=== PATIENT | female | born 2000 | race Caucasian/White ===

== ENCOUNTER 2022-03-19 14:02 | Observation (INO) ==
[2022-03-19 15:10] LABS: BUN Creatinine Ratio 15.7 (10-20); Bilirubin,Total 0.3 mg/dl (0.2-1.0); Calcium 9.3 mg/dl (8.5-10.1); Est GFR (African American) 142.5 ml/min; Total Protein 7.9 gm/dl (6.0-8.3)
[2022-03-19 15:12] LABS: INR 1.1 (0.9-1.1); Partial Thromboplastin Ratio 0.9; Partial Thromboplastin Time 25.1 Seconds (21.0-31.0); Prothrombin Time 11.4 Seconds (9.0-12.0)
[2022-03-19 15:26] LABS: Anisocytosis Present; Eosinophils # (auto) 0.05 K/uL (0-0.5); Eosinophils % (auto) 0.8 %; Hematocrit (blood only) 25.6 % (37-47); Hemoglobin 7.2 g/dL (12.0-16.0); Hypochromasia Present; Immature Granulocytes # (auto) 0.01 K/uL (0.00-0.02); Immature Granulocytes % (auto) 0.2 %; Lymphocytes # (auto) 1.24 K/uL (1.2-3.4); Lymphocytes % (auto) 20.8 %; Mean Corpuscular Hemoglobin 18.7 pg (25-34); Mean Corpuscular Hgb Conc 28.1 g/dL (32-36); Mean Corpuscular Volume 66.5 fL (80-100); Mean Platelet Volume 10.5 fL (7.4-10.4); Microcytosis Present; Monocytes # (auto) 0.39 K/uL (0.11-0.59); Monocytes % (auto) 6.5 %; Neutrophils # (auto) 4.28 K/uL (1.4-6.5); Neutrophils % (auto) 71.7 %; Platelet Count 414 K/uL (130-400); RDW Coefficient of Variation 20.2 % (11.5-14.5); RDW Standard Deviation 47.5 fL (36.4-46.3); Red Blood Count 3.85 M/uL (4.2-5.4); White Blood Count 5.97 K/uL (4.8-10.8)
[2022-03-19] MEDS ORDERED: LORazepam 1 MG TAB PO STA (16:23)
[2022-03-19] MEDS: MUPIROCIN 2% OINT 22 GM TUBE EXT SCH (17:21)
--- NOTE | 2022-03-19 17:21 | Emergency Department Note ---
History of Present Illness General Chief complaint: Abnormal Labs/Diagnostic Testing Stated complaint: ANEMIA, DR VERNA, WOUNDS Time Seen by Provider: 03/19/22 14:15 History of Present Illness Provider complaint: Low hemoglobin skin wounds Onset (ago): unknown Associated symptoms: + rash; no chest pain, no cough, no fever/chills, no headaches, no nausea/vomiting or no shortness of breath 21-year-old female in inpatient drug rehab from [facility] presents emergency department for low hemoglobin and skin rash. Patient reports that she has a history of anemia and is usually on iron. She states she has been taking all her iron. Patient states when she checked in [facility] I did blood work and found her hemoglobin to be 6.9. She states her hemoglobin usually runs around 10. She denies any vaginal bleeding. She denies any chance of . She denies any melena or hematochezia. No hematemesis. Patient states the doctor at [facility] wanted her to come here to get a blood transfusion. The patient also reports that she has multiple skin wounds throughout her body. She states she gets these because she picks her skin when she abuses heroin. She denies any IV drug use. Patient denies any rash or fevers. Patient states in the past when she has been sober from heroin use she is not picked at her skin and then the lesions go away when she puts on Bactroban ointment. No fevers. No discharge from any of the lesions. Home Medications Medication Instructions Recorded Confirmed Type acetaminophen 325 mg tablet 650 mg PO Q4H PRN 03/19/22 03/19/22 History (Tylenol) bacitracin zinc 500 unit/gram 1 applic TOPICAL DIRECTED PRN 03/19/22 03/19/22 History topical ointment buspirone 5 mg tablet 5 mg PO TID 03/19/22 03/19/22 History diazepam 5 mg tablet (Valium) 5 mg PO DIRECTED PRN 03/19/22 03/19/22 History diazepam 5 mg tablet (Valium) 5 mg PO TID 03/19/22 03/19/22 History diphenhydramine HCl 25 mg capsule 25 - 50 mg PO Q6H PRN 03/19/22 03/19/22 History (Benadryl) ferrous sulfate 325 mg (65 mg 325 mg PO DAILY 03/19/22 03/19/22 History iron) tablet food supplemt, lactose-reduced 1 ea PO BID 03/19/22 03/19/22 History (Ensure) hydroxyzine HCl 50 mg tablet 50 mg PO TID PRN 03/19/22 03/19/22 History ibuprofen 600 mg tablet 600 mg PO QID PRN 03/19/22 03/19/22 History melatonin 5 mg tablet 5 - 10 mg PO HS PRN 03/19/22 03/19/22 History multivitamin 1 tab PO DAILY 03/19/22 03/19/22 History mupirocin 2 % topical ointment 1 applic TOPICAL TID 03/19/22 03/19/22 History trazodone 100 mg tablet 200 mg PO HS 03/19/22 03/19/22 History Allergies Allergy/AdvReac Type Severity Reaction Status Date / Time No Known Allergies Allergy Verified 03/19/22 15:31 Past Med/Surg History Medical History (Updated 03/19/22 @ 17:33 by Edilson Olsen) Iron deficiency anemia No pertinent family history Surgical History (Updated 03/19/22 @ 17:23 by Edilson Olsen) No pertinent past surgical history Social History (Updated 03/19/22 @ 17:23 by Edilson Olsen) Smoking Status: Never smoker Hx Substance Use: Yes Non-Prescribed Medications: Heroin Feels Safe at Home: Yes Review of Systems A total of 10 systems reviewed and were otherwise negative Physical Exam Vital Signs Vital Signs - 24 hr 03/19/22 14:06 03/19/22 14:38 03/19/22 14:41 Temperature 37.3 C Temperature Source Temporal Artery Scan Pulse Rate 107 H 83 Pulse Rate [Apical] 86 Respiratory Rate 20 18 18 Respiratory Effort / Characteristics Non-Labored Spontaneous Non-Labored Spontaneous Respiratory Depth Normal Normal Respiratory Pattern Regular Regular Blood Pressure 101/64 Blood Pressure [Right Arm] 100/61 Blood Pressure Mean 76 Blood Pressure Mean [Right Arm] 74 Blood Pressure Position [Right Arm] Sitting Pulse Oximetry 96 100 100 Oxygen Delivery Method Room Air Room Air Room Air Sepsis Recent Fever Within 48 Hours No Sepsis New/Unexplained Change in Mental Status N/A Sepsis Action Taken by Nursing No Action Required Physical Exam GENERAL: She is oriented to person, place, and time. She appears well-developed and well-nourished. She does not appear distressed. HENT: Exam performed. -Head: Normocephalic and atraumatic. -Right Ear: External ear normal. No mastoid tenderness. -Left Ear: External ear normal. No mastoid tenderness. -Mouth/Throat: The oropharynx is clear and moist. No trismus in the jaw. No dental abscesses or uvula swelling. No oropharyngeal exudate or tonsillar abs cesses. EYES: Conjunctivae and EOM are normal. Pupils are equal, round, and reactive to light. Right eye exhibits no discharge. Left eye exhibits no discharge. No scleral icterus. NECK: Normal range of motion. Neck supple. No JVD present. No spinous process tenderness present. No carotid bruit present. No rigidity. No tracheal deviation and normal range of motion present. No Brudzinski's sign and no Kernig's sign noted. CV: Normal rate, regular rhythm, normal heart sounds and intact distal pulses. There is no peripheral edema. Palpable radial pulses bue. PULM/CHEST: Effort normal and breath sounds normal. No respiratory distress. No stridor. She has no wheezes. She has no rales. -Chest Wall: She exhibits no tenderness. ABD: The abdomen is soft. Bowel sounds are normal. She has no distension. No mass is present. There is no tenderness. There is no rebound, no guarding, no Galloway's sign and no tenderness at McBurney's point. Rovsig negative MUSC/SKEL: Normal range of motion. There is no peripheral edema, tenderness or deformity. LYMPH: No cervical adenopathy. NEURO: She is alert and oriented to person, place, and time. She has normal strength. No cranial nerve deficit or sensory deficit. Coordination and gait normal. GCS eye subscore is 4. GCS verbal subscore is 5. GCS motor subscore is 6. Cerebellar tests wnl. SKIN: Multiple skin lesions over the patient's trunk bilateral upper extremities, and back which appear to be scabs from picking. There is some mild purulent discharge with minimal erythema from around them. No fluctuant areas. No vesicles. Nikolsky negative. PSYCH: She has a normal mood and affect. Behavior is normal. Judgment and thought content normal. Course Course 1415: The patient was evaluated in room C11. A complete history and physical exam was performed Cardiac monitoring: An order was placed for continuous cardiac monitoring. The monitor shows a rate of 80 with sinus rhythm 1705: Vital signs stable. Patient's hemoglobin 7.2. Rectal exam performed with female nursing hide curer Stephanie at bedside, Hemoccult negative no bright blood per rectum. With regards to the patient's anemia, patient states her hemoglobin usually runs around 10. The patient will be transfused 1 unit packed red blood cells. With regards to the patient's skin lesions, no leukocytosis lactic acid within normal limits. Bactroban will be placed as she is stated that in the past that has helped when she is being clean from drugs the lesions usually resolve that she is not picking her skin. Bactroban ordered for the patient. The patient was concerned that if she was admitted to the hospital she would not be able [facility] Matilde loss prevention and safety manager spoke with Lawson from [facility] and Lawson told Matilde that once the patient was medically cleared and discharged from the hospital she could return to [facility] to continue her rehab [facility]. [facility] Administered Medications Discontinued Medications Lorazepam (Lorazepam 1 Mg Tab) 1 mg PO NOW STA Stop: 03/19/22 16:24 Last Admin: 03/19/22 16:34 Dose: 1 mg Documented by: [id number] Critical Care Time Critical Care Time: Yes Total Critical Care Time: 38 I have personally spent greater than 38 minutes of critical care time in the direct management of this patient. This includes bedside care, interpretation of diagnostic studies, and testing, discussion with consultants, patient, and family members, and other required patient management activities. This 38 mi nutes is in excess of all separately billable procedures. Medical Decision Making Laboratory Data Result diagrams: 03/19/22 14:29 03/19/22 14:29 Lab Results 03/19/22 03/19/22 03/19/22 Range/Units 14:29 14:29 14:29 WBC 5.97 (4.8-10.8) K/uL RBC 3.85 L (4.2-5.4) M/uL Hgb 7.2 L (12.0-16.0) g/dL Hct 25.6 L (37-47) % MCV 66.5 L (80-100) fL MCH 18.7 L (25-34) pg MCHC 28.1 L (32-36) g/dL RDW Std Deviation 47.5 H (36.4-46.3) fL RDW Coeff of Jennifer 20.2 H (11.5-14.5) % Plt Count 414 H (130-400) K/uL MPV 10.5 H (7.4-10.4) fL Immature Gran % (Auto) 0.2 % Neut % (Auto) 71.7 % Lymph % (Auto) 20.8 % Ida % (Auto) 6.5 % Eos % (Auto) 0.8 % Baso % (Auto) 0.0 % Neut # (Auto) 4.28 (1.4-6.5) K/uL Lymph # (Auto) 1.24 (1.2-3.4) K/uL Ida # (Auto) 0.39 (0.11-0.59) K/uL Eos # (Auto) 0.05 (0-0.5) K/uL Baso # (Auto) 0.00 (0-0.2) K/uL Immature Gran # (Auto) 0.01 (0.00-0.02) K/uL Hypochromasia Present Anisocytosis Present Microcytosis Present PT (9.0-12.0) Seconds INR (0.9-1.1) APTT (21.0-31.0) Seconds PTT Ratio Sodium (136-145) mmol/L Potassium (3.5-5.1) mmol/L Chloride (98-107) mmol/L Carbon Dioxide (21-32) mmol/L Anion Gap (3-11) BUN (6-23) mg/dl Creatinine (0.6-1.2) mg/dl Est Cr Clr Drug Dosing ml/min Est GFR ( Amer) ml/min Est GFR (Non-Af Amer) ml/min BUN/Creatinine Ratio (10-20) Glucose (70-99(Fasting)) mg/dl Lactate 1.0 (0.4-2.0) mmol/L Calcium (8.5-10.1) mg/dl Total Bilirubin (0.2-1.0) mg/dl Direct Bilirubin (0-0.2) mg/dl AST (13-39) U/L ALT (7-52) U/L Alkaline Phosphatase (34-104) U/L Total Protein (6.0-8.3) gm/dl Albumin (3.4-5.0) gm/dl Lipase (11-82) U/L Blood Type O Negative Antibody Screen NEGATIVE 03/19/22 03/19/22 03/19/22 Range/Units 14:29 14:29 14:29 WBC (4.8-10.8) K/uL RBC (4.2-5.4) M/uL Hgb (12.0-16.0) g/dL Hct (37-47) % MCV (80-100) fL MCH (25-34) pg MCHC (32-36) g/dL RDW Std Deviation (36.4-46.3) fL RDW Coeff of Jennifer (11.5-14.5) % Plt Count (130-400) K/uL MPV (7.4-10.4) fL Immature Gran % (Auto) % Neut % (Auto) % Lymph % (Auto) % Ida % (Auto) % Eos % (Auto) % Baso % (Auto) % Neut # (Auto) (1.4-6.5) K/uL Lymph # (Auto) (1.2-3.4) K/uL Ida # (Auto) (0.11-0.59) K/uL Eos # (Auto) (0-0.5) K/uL Baso # (Auto) (0-0.2) K/uL Immature Gran # (Auto) (0.00-0.02) K/uL Hypochromasia Anisocytosis Microcytosis PT 11.4 (9.0-12.0) Seconds INR 1.1 (0.9-1.1) APTT 25.1 (21.0-31.0) Seconds PTT Ratio 0.9 Sodium 137 (136-145) mmol/L Potassium 4.0 (3.5-5.1) mmol/L Chloride 105 (98-107) mmol/L Carbon Dioxide 26 (21-32) mmol/L Anion Gap 6 (3-11) BUN 11 (6-23) mg/dl Creatinine 0.70 (0.6-1.2) mg/dl Est Cr Clr Drug Dosing 118.0 ml/min Est GFR ( Amer) 142.5 ml/min Est GFR (Non-Af Amer) 123.0 ml/min BUN/Creatinine Ratio 15.7 (10-20) Glucose 97 (70-99(Fasting)) mg/dl Lactate (0.4-2.0) mmol/L Calcium 9.3 (8.5-10.1) mg/dl Total Bilirubin 0.3 (0.2-1.0) mg/dl Direct Bilirubin 0.0 (0-0.2) mg/dl AST 12 L (13-39) U/L ALT 8 (7-52) U/L Alkaline Phosphatase 96 (34-104) U/L Total Protein 7.9 (6.0-8.3) gm/dl Albumin 4.0 (3.4-5.0) gm/dl Lipase 23 (11-82) U/L Blood Type Antibody Screen ECG Data Indication: + weakness Rate (beats per minute): 83 Rhythm: + normal sinus ECG Intervals/blocks: + Normal QRS, + Normal [place] and + Normal QT-c ECG ST segments: + Normal ST segments MDM Narrative Vital signs stable. Patient's hemoglobin 7.2. Rectal exam performed with female nursing hide curer Stephanie at bedside, Hemoccult negative no bright blood per rectum. With regards to the patient's anemia, patient states her hemoglobin usually runs around 10. The patient will be transfused 1 unit packed red blood cells. With regards to the patient's skin lesions, no leukocytosis lactic acid within normal limits. Bactroban will be placed as she is stated that in the past that has helped when she is being clean from drugs the lesions usually resolve that she is not picking her skin. Bactroban ordered for the patient. The patient was concerned that if she was admitted to the hospital she would not be [facility] Matilde loss prevention and safety manager spoke with Lawson [facility] and Lawson told Matilde that once the patient was medically cleared and discharged from the hospital she could return to [facility] to continue her rehab treatment. [facility] Impression & Plan Iron deficiency anemia Discharge Plan Visit Data Chief Complaint: Abnormal Labs/Diagnostic Testing Stated Complaint: ANEMIA, DR SENT, WOUNDS Discharge Problem: Iron deficiency anemia Patient Disposition: Admitted As Inpatient Forms Stand Alone Forms: My [facility] Prescriptions Prescriptions: No Action multivitamin Tablet 1 tab PO DAILY RF: 0 trazodone 100 mg Tablet 200 mg PO HS RF: 0 mupirocin 2 % Ointment 1 applic TOPICAL TID RF: 0 diazepam [Valium] 5 mg Tablet 5 mg PO TID RF: 0 Ensure Liquid 1 ea PO BID RF: 0 buspirone [BuSpar] 5 mg Tablet 5 mg PO TID RF: 0 acetaminophen [Tylenol] 325 mg Tablet 650 mg PO Q4H PRN (Reason: NEEDED) RF: 0 hydroxyzine HCl 50 mg Tablet 50 mg PO TID PRN (Reason: LOS) RF: 0 bacitracin zinc 500 unit/gram Ointment 1 applic TOPICAL DIRECTED PRN (Reason: AFFECTED AREA) RF: 0 diphenhydramine HCl [Benadryl] 25 mg Capsule 25 - 50 mg PO Q6H PRN (Reason: NEEDED) RF: 0 ferrous sulfate 325 mg (65 mg iron) Tablet 325 mg PO DAILY RF: 0 ibuprofen 600 mg Tablet 600 mg PO QID PRN (Reason: Pain) RF: 0 diazepam [Valium] 5 mg Tablet 5 mg PO DIRECTED PRN (Reason: CIWA >/= 8) RF: 0 melatonin 5 mg Tablet 5 - 10 mg PO HS PRN (Reason: Sleep) RF: 0 Referrals Referrals: [facility] [Primary Care Provider] -
--- NOTE | 2022-03-19 17:27 | History & Physical Report ---
Date of Service March 19, 2022 Assessment & Plan (1) Anemia: Plan: Patient is 21 y/o F with PMH anxiety, depression, anemia presented to ER with c/o abnormal labs - low low hemoglobin. Reported hemoglobin of 6.9 on outpatient labs yesterday. H/O iron deficiency anemia. Hasnt been taking iron supplements regularly. Denies hematuria, hematemesis, melena, hematochezia, dizziness, SOB, CP, weakness In ER vitals stable. Hgb: 7.2, microcytic microchromic Negative Hemoccult in ER Anemia labs pending Type and cross and transfuse 1 unit PRBCs Monitor H&H (2) Wound of skin: Plan: History of skin wounds from reported repetitive picking of skin Mupirocin ointment to areas for now Wound nurse consult (3) Heroin abuse: Plan: [facility] Last used 2 weeks ago On Day 2 of Valium taper started at Rehab. Will continue Valium taper.. 5 mg 3 times daily x2 days. (Today is day 2), followed by 2.5 mg 4 times daily x2 days, followed by 2.5 mg 3 times daily x2 days, then 2.5 mg twice daily x3 days then 2.5 mg daily x3 days to end on 03/27/2022 Spoke with nurse from [facility] to communicate that was continuing Valium taper here in hospital (4) Anxiety and depression: Plan: Continue buspirone, trazodone Previously on Klonopin, has been discontinued at rehab Patient given Ativan and Klonopin in ER DVT Prophylaxis SCDs Patient from [place]. Reports no current PCP. Pt was seen and care coordinated with Dr Noel. See addendum History of Present Illness Chief Complaint: Abnormal labs Primary Care Provider: [facility] Patient is 21 y/o F with PMH anxiety, depression, anemia presented to ER with c/o abnormal labs - low low hemoglobin. Patient reports is currently at [facility] for rehab. Reports has been there for almost a week. States she had labs completed yesterday with reported hemoglobin of 6.9. Patient denies any recent or current dizziness, syncope, chest pain, shortness of breath, weakness. Reportsh/o iron deficiency anemia and last year had Hgb of 5 and felt weak and fatigue. She reports a cause for anemia was not found at that time. Denies history of EGD or colonoscopy. Patient states she has not been taking her iron supplement regularly. History heroin use-snorting heroin. Last used approximately 2 weeks ago. Patient denies alcohol use. She reports was previously on Klonopin 1mg TID for anxiety and was following with psychiatrist in [place]. Patient states since being at rehab she has not been getting her Klonopin. Valium taper was started yesterday. Reports chronically picks at skin. States when using heroin she picks at her skin more and gets wounds to skin. In past has used mupirocin ointment and approximately 3 months ago was on unknown oral antibiotic. Has abrasions to right elbow, posterior neck and posterior shoulders, anterior neck/upper chest. Denies any discharge or discomfort from area. Patient states since she has been off of heroin she has not been itchy and therefore has not been scratching areas for the past 1 to 2 weeks. Smokes 1/4-1/2 ppd x 6 years. Denies fever/chills, diaphoresis, N/V/D/C, PARR, dizziness, syncope, vision changes, neck pain, orthopnea, palpitations, cough, sore throat, choking, otalgia, rhinorrhea, abdominal pain, paresthesias, weakness, extremity weakness, extremity edema, other rashes, urinary symptoms. Allergies Allergy/AdvReac Type Severity Reaction Status Date / Time No Known Allergies Allergy Verified 03/19/22 15:31 Home Medications Medication Instructions Recorded Confirmed Type acetaminophen 325 mg tablet 650 mg PO Q4H PRN 03/19/22 03/19/22 History (Tylenol) bacitracin zinc 500 unit/gram 1 applic TOPICAL DIRECTED PRN 03/19/22 03/19/22 History topical ointment buspirone 5 mg tablet 5 mg PO TID 03/19/22 03/19/22 History diazepam 5 mg tablet (Valium) 5 mg PO DIRECTED PRN 03/19/22 03/19/22 History diazepam 5 mg tablet (Valium) 5 mg PO UD 03/19/22 03/19/22 History diphenhydramine HCl 25 mg capsule 25 - 50 mg PO Q6H PRN 03/19/22 03/19/22 History (Benadryl) ferrous sulfate 325 mg (65 mg 325 mg PO DAILY 03/19/22 03/19/22 History iron) tablet food supplemt, lactose-reduced 1 ea PO BID 03/19/22 03/19/22 History (Ensure) hydroxyzine HCl 50 mg tablet 50 mg PO TID PRN 03/19/22 03/19/22 History ibuprofen 600 mg tablet 600 mg PO QID PRN 03/19/22 03/19/22 History melatonin 5 mg tablet 5 - 10 mg PO HS PRN 03/19/22 03/19/22 History multivitamin 1 tab PO DAILY 03/19/22 03/19/22 History mupirocin 2 % topical ointment 1 applic TOPICAL TID 03/19/22 03/19/22 History trazodone 100 mg tablet 200 mg PO HS 03/19/22 03/19/22 History Past Med/Surg History Medical History Anxiety and depression Heroin abuse Iron deficiency anemia No pertinent family history Surgical History No pertinent past surgical history Family History Other No significant family history Social History Smoking Status: Current every day smoker Tobacco Type: Cigarettes Cigarettes Per Day: 10-15; Do You Dip or Chew Tobacco: No; Tobacco Cessation Education Requested by Patient: No Hx Alcohol Use: No Hx Substance Use: Yes Non-Prescribed Medications: Heroin Last Used Substance Other:: 2.5 weeks Preferred Language: Polish [employer] Required: No Beliefs That Will Affect Care: None Current Living Situation: Parent Current Living Situation Comment: Lives with dad Other Information That Helps Us Care for You: No Feels Safe at Home: Yes Safety Concerns: Feels Safe At This Time Assistive Devices: None Review of Systems Review of Systems: All systems reviewed & are unremarkable except as noted in HPI & below Physical Exam Physical Exam: General: no distress, WDWN Head: normocephalic, atraumatic Eyes: PERRL, EOM's intact, conjunctiva pale, anicteric ENT: normal inspection external ears, nose, mucous membranes moist Neck: supple, trachea midline Lungs: clear, no respiratory distress, no wheezing/rhonchi/rales CV: RRR, no murmur, no JVD, no pretibial edema Abd: normal BS, soft, non-tender Ext: no cyanosis, no calf tenderness Neuro: A&O x 3, no focal deficits noted, normal affect Skin: pale, warm, dry, +erythematous deroofed scab areas to right elbow, posterior neck/upper back, right anterior neck and upper chest, +hyperpigmented areas to bilateral arms (pt report prior scabs) Results & Data Results & Data ([facility]) Vital Signs (Past 12 Hours) Vital Signs Temp Pulse Pulse Resp BP BP Pulse Ox 03/19/22 14:41 83 18 100 03/19/22 14:38 86 18 100/61 100 03/19/22 14:06 37.3 C 107 H 20 101/64 96 Laboratory Results Short CBC 03/19/22 Range/Units 14:29 WBC 5.97 (4.8-10.8) K/uL Hgb 7.2 L (12.0-16.0) g/dL Hct 25.6 L (37-47) % Plt Count 414 H (130-400) K/uL BMP 03/19/22 14:29 Sodium 137 Potassium 4.0 Chloride 105 Carbon Dioxide 26 BUN 11 Creatinine 0.70 Glucose 97 Calcium 9.3 Liver Function 03/19/22 Range/Units 14:29 Total Bilirubin 0.3 (0.2-1.0) mg/dl Direct Bilirubin 0.0 (0-0.2) mg/dl AST 12 L (13-39) U/L ALT 8 (7-52) U/L Alkaline Phosphatase 96 (34-104) U/L Albumin 4.0 (3.4-5.0) gm/dl Supervising Physician Co-Signing Physician Notes 21 y/o F with PMH of anxiety, depression, anemia presented to ER 03/19 with c/o abnormal labs - low hemoglobin, 6.9 as OP on 03/18. H/O iron deficiency anemia likely 2/2 blood loss due to skin/scar/scabs picking habit. Hasnt been taking iron supplements regularly. Denies hematuria, hematemesis, melena, hematochezia, dizziness, SOB, CP, weakness. Monitor hemoglobin transfuse for hemoglobin less than 7.0 or symptomatic. Wound care nurse. Valium taper for heroin abuse which she was recently started as an outpatient at rehab. Continue home medication. Upon examination: GENERAL: Alert and oriented x3. NAD, on RA. HEENT: No pallor, no icterus. Pupils equal, round and reactive to light. Oral mucosa moist. NECK: No JVD, no neck masses. Front of neck base with healed scar. Back of neck base with granulating wound, looks noninfectious, approx 10 x 5 cm. Back of left shoulder with approximately 5 cm granulating wound, noninfectious looking. Right elbow had clean dressing but had similar wound as others, approx 5 cm. Multiple healed scars in the body. HEART: S1 and S2 heard. Regular rate and rhythm. No murmur, no gallop. RESPIRATORY SYSTEM: Normal AP diameter. No accessory muscle use. No wheezing, no crackles. ABDOMEN: Soft, bowel sounds present, nontender, no distention. CENTRAL NERVOUS SYSTEM: No facial droop. Speech is clear. Obeys simple commands. Moves extremities. EXTREMITIES: No edema, no erythema seen. I have seen and examined the patient and have discussed the case with the provider above. I agree with the assessment and plan as stated.
[2022-03-19 17:33] LABS: Reticulocyte % 1.7 % (0.5-2.0); Reticulocytes # 0.07 10^6/uL (0.02-0.10)
[2022-03-19] MEDS ORDERED: ACETAMINOPHEN 325 MG TAB PO STA (18:09)
[2022-03-19] MEDS ORDERED: clonazePAM 1 MG TAB PO STA (18:09)
[2022-03-19] MEDS ORDERED: SODIUM CHLORIDE 0.9% 250 ML IV PRN ×2 (18:32→20:53)
[2022-03-19 19:25] LABS: Ferritin 7.7 ng/ml (8-388)
[2022-03-19] MEDS ORDERED: POLYETHYLENE (MIRALAX) 17 GM PACK PO PRN (20:18)
[2022-03-19] MEDS ORDERED: diphenhydrAMINE Capsule 25 MG CAP PO PRN (20:18)
[2022-03-19] MEDS ORDERED: ALUMINUM/MAGNESIUM SUSP 30 ML UDC PO PRN (20:18)
[2022-03-19] MEDS ORDERED: ONDANSETRON INJ 2 MG/ML 2 ML VIAL IV PRN (20:18)
[2022-03-19] MEDS ORDERED: MELATONIN 3 MG TAB PO PRN (20:18)
[2022-03-19] MEDS ORDERED: ACETAMINOPHEN 325 MG TAB PO PRN (20:18)
[2022-03-19] MEDS ORDERED: IBUPROFEN 600 MG TAB PO PRN (20:18)
[2022-03-19] MEDS ORDERED: traZODone HCL 100 MG TAB PO SCH (21:00)
[2022-03-19] MEDS ORDERED: diazePAM 5 MG TABLET PO SCH (21:00)
[2022-03-19] MEDS: busPIRone 5 MG TAB PO SCH (21:12)
[2022-03-19] MEDS ORDERED: clonazePAM 0.5 MG TAB PO STA (22:09)
[2022-03-20] MEDS: MUPIROCIN 2% OINT 22 GM TUBE EXT SCH (01:10)
[2022-03-20 01:28] LABS: Hematocrit (blood only) 26.8 % (37-47); Hemoglobin 7.7 g/dL (12.0-16.0)
[2022-03-20 06:46] LABS: Hematocrit (blood only) 27.9 % (37-47); Hemoglobin 7.9 g/dL (12.0-16.0); Mean Corpuscular Hemoglobin 19.3 pg (25-34); Mean Corpuscular Hgb Conc 28.3 g/dL (32-36); Mean Corpuscular Volume 68.2 fL (80-100); Mean Platelet Volume 10.5 fL (7.4-10.4); Platelet Count 391 K/uL (130-400); RDW Coefficient of Variation 20.7 % (11.5-14.5); RDW Standard Deviation 50.3 fL (36.4-46.3); Red Blood Count 4.09 M/uL (4.2-5.4); White Blood Count 6.31 K/uL (4.8-10.8)
[2022-03-20 07:00] LABS: BUN Creatinine Ratio 15.9 (10-20); Calcium 8.9 mg/dl (8.5-10.1); Creatinine Clr Calc Pharmacy 119.7 ml/min; Est GFR (African American) 143.2 ml/min; Est GFR (Non-African American) 123.6 ml/min; Phosphorus 5.8 mg/dl (2.5-4.9); Potassium 3.9 mmol/L (3.5-5.1)
[2022-03-20] MEDS: busPIRone 5 MG TAB PO SCH (08:32)
[2022-03-20] MEDS ORDERED: MULTIVITAMIN TAB PO SCH (09:00)
[2022-03-20] MEDS ORDERED: FERROUS SULFATE 325 MG TAB PO SCH (09:00)
[2022-03-20] MEDS ORDERED: IRON SUCROSE 400 MG in SODIUM CHLORIDE 0.9% 250 ML IV SCH (09:00)
[2022-03-20] MEDS ORDERED: diazePAM 5 MG TABLET PO SCH (09:00)
[2022-03-20] MEDS ORDERED: PANTOprazole 40 MG TAB PO SCH (09:00)
[2022-03-20] MEDS ORDERED: clonazePAM 0.5 MG TAB PO ONE (10:10)
--- NOTE | 2022-03-20 13:27 | Discharge Summary ---
Date of Service March 20, 2022 Admission HPI Per Admitting Provider Patient is 21 y/o F with PMH anxiety, depression, anemia presented to ER with c/o abnormal labs - low low hemoglobin. Patient reports is currently at [facility] for rehab. Reports has been there for almost a week. States she had labs completed yesterday with reported hemoglobin of 6.9. Patient denies any recent or current dizziness, syncope, chest pain, shortness of breath, weakness. Reportsh/o iron deficiency anemia and last year had Hgb of 5 and felt weak and fatigue. She reports a cause for anemia was not found at that time. Denies history of EGD or colonoscopy. Patient states she has not been taking her iron supplement regularly. History heroin use-snorting heroin. Last used approximately 2 weeks ago. Patient denies alcohol use. She reports was previously on Klonopin 1mg TID for anxiety and was following with psychiatrist in [place]. Patient states since being at rehab she has not been getting her Klonopin. Valium taper was started yesterday. Reports chronically picks at skin . States when using heroin she picks at her skin more and gets wounds to skin. In past has used mupirocin ointment and approximately 3 months ago was on unknown oral antibiotic. Has abrasions to right elbow, posterior neck and posterior shoulders, anterior neck/upper chest. Denies any discharge or discomfort from area. Patient states since she has been off of heroin she has not been itchy and therefore has not been scratching areas for the past 1 to 2 weeks. Smokes 1/4-1/2 ppd x 6 years. Denies fever/chills, diaphoresis, N/V/D/C, PARR, dizziness, syncope, vision changes, neck pain, orthopnea, palpitations, cough, sore throat, choking, otalgia, rhinorrhea, abdominal pain, paresthesias, weakness, extremity weakness, extremity edema, other rashes, urinary symptoms. Admission Exam Per Admitting Provider General: no distress, WDWN Head: normocephalic, atraumatic Eyes: PERRL, EOM's intact, conjunctiva pale, anicteric ENT: normal inspection external ears, nose, mucous membranes moist Neck: supple, trachea midline Lungs: clear, no respiratory distress, no wheezing/rhonchi/rales CV: RRR, no murmur, no JVD, no pretibial edema Abd: normal BS, soft, non-tender Ext: no cyanosis, no calf tenderness Neuro: A&O x 3, no focal deficits noted, normal affect Skin: pale, warm, dry, +erythematous deroofed scab areas to right elbow, posterior neck/upper back, right anterior neck and upper chest, +hyperpigmented areas to bilateral arms (pt report prior scabs) Principal Diagnosis Iron deficiency anemia Discharge Exam General: Lying comfortably in bed, not in distress, on room air HEENT: EOMI, RUPINDER, MMM Chest: Clear breath sounds bilaterally, no wheezes or crackles CVS: Regular rate and rhythm, normal heart sounds, no murmur Abdomen: Soft, non tender, not distended, normal bowel sounds Neuro: Awake, alert, oriented, conversing well, non focal Extremities: No cyanosis, clubbing or edema Skin: erythematous deroofed scab jamila to posterior neck/upper back, anterior neck/upper chest, right elbow- no evidence of active infection, no purulence Discharge Data Allergies Allergy/AdvReac Type Severity Reaction Status Date / Time No Known Allergies Allergy Verified 03/19/22 15:31 Consultations 03/19/22 16:22 ED Decision to Admit Stat Ordered Studies Laboratory Results WBC 6.31 K/uL (4.8-10.8) 03/20/22 05:43 RBC 4.09 M/uL (4.2-5.4) L 03/20/22 05:43 Hgb 7.9 g/dL (12.0-16.0) L 03/20/22 05:43 Hct 27.9 % (37-47) L 03/20/22 05:43 MCV 68.2 fL (80-100) L 03/20/22 05:43 MCH 19.3 pg (25-34) L 03/20/22 05:43 MCHC 28.3 g/dL (32-36) L 03/20/22 05:43 RDW Std Deviation 50.3 fL (36.4-46.3) H 03/20/22 05:43 RDW Coeff of Jennifer 20.7 % (11.5-14.5) H 03/20/22 05:43 Plt Count 391 K/uL (130-400) 03/20/22 05:43 MPV 10.5 fL (7.4-10.4) H 03/20/22 05:43 Immature Gran % (Auto) 0.2 % 03/19/22 14: Neut % (Auto) 71.7 % 03/19/22 14: Lymph % (Auto) 20.8 % 03/19/22 14:29 Owen % (Auto) 6.5 % 03/19/22 14:29 Eos % (Auto) 0.8 % 03/19/22 14:29 Baso % (Auto) 0.0 % 03/19/22 14: Reticulocyte % (Auto) 1.7 % (0.5-2.0) 03/19/22 14: Neut # (Auto) 4.28 K/uL (1.4-6.5) 03/19/22 14: Lymph # (Auto) 1.24 K/uL (1.2-3.4) 03/19/22 14: Owen # (Auto) 0.39 K/uL (0.11-0.59) 03/19/22 14:29 Eos # (Auto) 0.05 K/uL (0-0.5) 03/19/22 14: Baso # (Auto) 0.00 K/uL (0-0.2) 03/19/22 14: Reticulocyte # 0.07 10^6/uL (0.02-0.10) 03/19/22 14: Immature Gran # (Auto) 0.01 K/uL (0.00-0.02) 03/19/22 14:29 Hypochromasia Present 03/19/22 14:29 Anisocytosis Present 03/19/22 14:29 Microcytosis Present 03/19/22 14:29 PT 11.4 Seconds (9.0-12.0) 03/19/22 14:29 INR 1.1 (0.9-1.1) 03/19/22 14:29 APTT 25.1 Seconds (21.0-31.0) 03/19/22 14:29 PTT Ratio 0.9 03/19/22 14:29 Sodium 138 mmol/L (136-145) 03/20/22 05:43 Potassium 3.9 mmol/L (3.5-5.1) 03/20/22 05:43 Chloride 107 mmol/L (98-107) 03/20/22 05:43 Carbon Dioxide 26 mmol/L (21-32) 03/20/22 05:43 Anion Gap 5 (3-11) 03/20/22 05:43 BUN 11 mg/dl (6-23) 03/20/22 05:43 Creatinine 0.69 mg/dl (0.6-1.2) 03/20/22 05:43 Est Cr Clr Drug Dosing 119.7 ml/min 03/20/22 05:43 Est GFR ( Amer) 143.2 ml/min 03/20/22 05:43 Est GFR (Non-Af Amer) 123.6 ml/min 03/20/22 05:43 BUN/Creatinine Ratio 15.9 (10-20) 03/20/22 05:43 Glucose 80 mg/dl (70-99(Fasting)) 03/20/22 05:43 Lactate 1.0 mmol/L (0.4-2.0) 03/19/22 14:29 Calcium 8.9 mg/dl (8.5-10.1) 03/20/22 05:43 Phosphorus 5.8 mg/dl (2.5-4.9) H 03/20/22 05:43 Magnesium 2.0 mg/dl (1.7-2.4) 03/20/22 05:43 Iron 88 mcg/dl (35-150) 03/19/22 14:29 Transferrin 362 mg/dl (200-360) H 03/19/22 14:29 Ferritin 7.7 ng/ml (8-388) L 03/19/22 14:29 Total Bilirubin 0.3 mg/dl (0.2-1.0) 03/19/22 14:29 Direct Bilirubin 0.0 mg/dl (0-0.2) 03/19/22 14:29 AST 12 U/L (13-39) L 03/19/22 14:29 ALT 8 U/L (7-52) 03/19/22 14:29 Alkaline Phosphatase 96 U/L (34-104) 03/19/22 14:29 Total Protein 7.9 gm/dl (6.0-8.3) 03/19/22 14:29 Albumin 4.0 gm/dl (3.4-5.0) 03/19/22 14:29 Lipase 23 U/L (11-82) 03/19/22 14:29 Vitamin B12 196 pg/ml (180-914) 03/19/22 14:29 Folate 8.94 ng/ml (>5.38) 03/19/22 14:29 POC Ur Test NEG (NEG) 03/19/22 19:21 SARS-CoV-2, RNA, NAAT NEGATIVE (NEGATIVE) 03/19/22 16:43 Blood Type O Negative 03/19/22 14:29 Blood Type Recheck O Negative 03/19/22 19:42 Antibody Screen NEGATIVE 03/19/22 14:29 Crossmatch See Detail 03/19/22 14:29 Hospital Course (1) Iron deficiency anemia: (2) Heroin abuse: (3) Anxiety and depression: (4) Wound of skin: 21 y/o F with PMH anxiety, depression, anemia presented to ER with c/o abnormal labs - low low hemoglobin. Reported hemoglobin of 6.9 on outpatient labs [employer]. Likely due to iron deficiency- due to blood loss due to picking of his wounds as well as nutritional- states her sink would be full of blood when she was picking her skin when she was abusing heroine but now stopped doing that and now in drug rehab for the past week and will be there for 3 more weeks. Due to her history of anemia, she told the staff she is anemic prompting the blood work which showed Hb of 6.9 and sent to ED. Work up showed Hb of 7.2 with severe iron deficiency; hemoccult negative, folate normal, B12 low normal level. She was transfused 1 U of blood with Hb improving to 7.9 this morning. Also received iv venofer x1. She was not taking her iron supplements, recommended to comply with her iron supplementation and recheck Hb weekly to make sure Hb is improving- if she can not tolerate po, she will need iv iron transfusion- If Hb not improving despite iron supplementation, recommended to follow up with GI for possible endoscopy to r/o celiac disease etc. Also recommended daily B12 supplementation given low normal B12 level. Denies any hematochezia, hematemesis, hematuria. No menses for the past 4 months but denied menorrhagia when she was having them. She does not have any symptoms from her anemia. Also, her wound is chronic and not infected- she has been using mupirocin ointment and covering with gauze- recommended to continue local wound care. She did see wound clinic in the past- recommended to follow up as needed. Management of her heroine abuse with valium taper as per the rehab physician. She was very engaged in the conversation throughout my encounter. [facility]. She is comfortable and stable for discharge. Total Time Total Time Spent Total Time Spent (In Minutes): 40 Discharge Plan Discharge Items Patient Disposition: Drug & Alcohol Rehab Reason For Visit: ANEMIA Discharge Diagnosis: Iron deficiency anemia Activity: Resume your previous activity Non-emergency contact: Primary Care Provider Call non-emergency contact if: you have any medication questions, your symptoms worsen, your pain is concerning for you and you have a fever Follow-up/Referrals: [facility] [Primary Care Provider] - Diet: Regular Addtl Attending Provider Instructions: Continue iron tablet once daily. Continue mupirocin ointment to the wounds three times daily and local wound care Recommend repeat blood work (CBC) weekly to ensure hemoglobin is coming up If hemoglobin remains low, recommend outpatient GI evaluation for possible endoscopy Follow up with wound clinic as needed. If fever, chills, purulent discharge etc, come to the emergency Pending Studies at Discharge: No Stand-Alone Forms: [facility] Skilled Items Patient informed of condition?: Yes DNR: No Discharge Level of Care: Other Communicable Disease: No Discharge Prognosis: Stable Lines: None Urinary Catheter: No Medications and DC Order Prescriptions: Continued multivitamin Tablet 1 tab PO DAILY RF: 0 trazodone 100 mg Tablet 200 mg PO HS RF: 0 diazepam [Valium] 5 mg Tablet 5 mg PO UD RF: 0 Ensure Liquid 1 ea PO BID RF: 0 buspirone 5 mg Tablet 5 mg PO TID RF: 0 acetaminophen [Tylenol] 325 mg Tablet 650 mg PO Q4H PRN (Reason: NEEDED) RF: 0 hydroxyzine HCl 50 mg Tablet 50 mg PO TID PRN (Reason: LOS) RF: 0 bacitracin zinc 500 unit/gram Ointment 1 applic TOPICAL DIRECTED PRN (Reason: AFFECTED AREA) RF: 0 diphenhydramine HCl [Benadryl] 25 mg Capsule 25 - 50 mg PO Q6H PRN (Reason: Itching) RF: 0 ibuprofen 600 mg Tablet 600 mg PO QID PRN (Reason: Pain) RF: 0 diazepam [Valium] 5 mg Tablet 5 mg PO DIRECTED PRN (Reason: CIWA >/= 8) RF: 0 melatonin 5 mg Tablet 5 - 10 mg PO HS PRN (Reason: Sleep) RF: 0 ferrous sulfate 325 mg (65 mg iron) Tablet 325 mg PO DAILY Qty: 30 RF: 0 mupirocin 2 % Ointment 1 applic TOPICAL TID Qty: 60 RF: 0 Admission Data Admit Date/Time: 03/19/22 17:39 Attending Provider: Willy Modi Admit Provider: Michelle Noel Primary Care Provider: Deena Carlson Other Providers: Michelle Noel Other Interventions: Discharge Summary Assessment (RN) Last Done: 03/20/22 12:33
--- NOTE | 2022-03-20 23:07 | Electrocardiogram Report ---
Test Reason : Blood Pressure : / mmHG Vent. Rate : 083 BPM Atrial Rate : 083 BPM P-R Int : 138 ms QRS Dur : 080 ms QT Int : 386 ms P-R-T Axes : 063 062 057 degrees QTc Int : 453 ms Normal sinus rhythm Possible Anterior infarct , age undetermined Abnormal ECG No previous ECGs available Confirmed by Quan Galloway ([id number]) on 03/20/2022 11:07:29 PM Referred By: Confirmed By:Quan Galloway
[2022-03-22] MEDS ORDERED: diazePAM 5 MG TABLET PO SCH (09:00)
[2022-03-24] MEDS ORDERED: diazePAM 5 MG TABLET PO SCH (09:00)
[2022-03-26] MEDS ORDERED: diazePAM 5 MG TABLET PO SCH (09:00)
== END 2022-03-20 14:02 | disposition alcohol treatment (31) ==
LOC: 2S 14:02 → ED 14:02 → SUATTDRO 17:39 → 2S 20:27